=== PATIENT | female | born 1985 | race Caucasian/White ===

== ENCOUNTER 2017-12-20 11:56 | Emergency (ER) | payer BC, OTHER ==
[~2017-12-20] VITALS: Ht 160 cm; Wt 90.7 kg
[~2017-12-20 11:56] MED LIST: AMITRIPTYLINE H25 MG PO; BENTYL10 MG PO; CLOMIPHENE CITR50 MG PO; METFORMIN HCL500 MG PO; NORCO 5-325 TA1 EACH PO; WELLBUTRIN SR100 MG PO
[2017-12-20] MEDS ORDERED: GLUCOPHAGE500 MG PO (12:19)
== END 2017-12-20 15:06 | disposition home or self-care (01) ==
LOC: ED 11:56
DX: R19.7 Diarrhea, unspecified (principal); K92.2 Gastrointestinal hemorrhage, unspecified; Z91.041 Radiographic dye allergy status
CPT/HCPCS: 36415; 80053; 81001; 83690; 84703; 85025; 99283

== ENCOUNTER 2022-06-27 14:09 | Inpatient (IN) | payer BC, OTHER ==
[~2022-06-27] VITALS: Ht 160 cm; Wt 95.9 kg
[~2022-06-27 14:09] MED LIST changes: +AMBIEN5 MG PO; +CELECOXIB200 MG PO; +CIPRO500 MG PO; +GLUCOPHAGE500 MG PO; +HAIR, SKIN & N1 EACH PO; +HYDROCODON-ACE1 EA11 PO; +IBUPROFEN600 MG PO; +LIPITOR20 MG PO; +MAGNESIUM200 MG PO; +MAPAP325 MG PO; +MULTIVITAMINS1 EAC8 PO; +OMEGA 3 1,0001 EACH PO; +OXYBUTYNIN CHLOR5 MG PO; +OXYCODON-ACETA1 EAC2 PO; +VENTOLIN HFA18 GM INH; +VITAMIN D31000 UNI1 PO
--- NOTE | 2022-06-27 20:05 | NUR ---
PATIENT ADMISSION COMPLETED. PATIENT RATES PAIN AT A 4/10 AND DENIES THE NEED FOR PAIN MEDICATION AT THIS TIME. PATIENT DENIES ANY NAUSEA. PATIENTS IV INFUSING PER ORDER. MEDS GIVEN PER ORDER. PATIENT UP TO BR AND VOIDED. PATIENT IS BACK IN BED RESTING. NO FURTHER NEEDS NOTED. CALL LIGHT IN REACH. VITALS TAKEN AND RECORDED.
--- NOTE | 2022-06-27 21:10 | NUR ---
PATIENT REPORTS 6/10 PAIN IN HER MID UPPER ABD. PATIENT GIVEN PRN PAIN MEDICATION PER ORDER. NO FURTHER NEEDS NOTED. CALL LIGHT IN REACH.
--- NOTE | 2022-06-27 21:56 | NUR ---
PATIENT IS RESTING IN BED WATCHING TV. PATIENT STATED "MY PAIN IS MUCH IMPROVED". PATIENT DENIES THE NEED FOR ANY PAIUN MEDICATION AT THIS TIME. PATIENT DENIES ANY NAUSEA. NO FURTHER NEEDS NOTED. CALL LIGHT IN REACH. HAT IN TOILET EMPTIED.
--- NOTE | 2022-06-28 00:04 | NUR ---
PRN PAAIN MEDICATION GIVEN PER ORDER. FOR 6/10 ABD PAIN. NO FURTHER NEEDS NOTED. IV INFUSING PER ORDER. CALL LIGHT IN REACH.
--- NOTE | 2022-06-28 02:40 | NUR ---
PATIENTS VITALS TAKEN AND RECORDED. INTAKE AND OUTPUT RECORDED. SCHEDULED IX ABX INFUSING PER ORDER. PATIENT DENIES ANY NAUSEA. PATIENT DENIES ANY PAIN AT THIS TIME. NO NEEDS NOTED. CALL LIGHT IN REACH.
--- NOTE | 2022-06-28 04:14 | NUR ---
PATIENT IS RESTING IN BED WITH EYES CLSOED, RR 16. CALL LIGHT IN REACH.
--- NOTE | 2022-06-28 06:23 | NUR ---
VITALS TAKEN AND RECORDED. INTAKE AND OUTPUT RECORDED. AM MEDS PER ORDER. PATIENT RATES PAIN AT A 3/10. PATIENT DENIES THE NEED FOR PRM PAIN MEDICATION AT THIS TIME. WARM PACK PROVIDED. IV INFUSING PER ORDER. PATIENT DENIES ANY NAUSEA. NO FURTHER NEEDS NOTED. CALL LIGHT IN REACH.
--- NOTE | 2022-06-28 07:19 | NUR ---
PT RESTING IN BED EYE MASK IN PLACE AT TIME OF SHIFT REPORT. LEFT UNDISTURBED. NEEDED ITEMS ARE IN REACH.
--- NOTE | 2022-06-28 09:06 | NUR ---
PT AWAKE RESTING IN BED. DENIES PAIN BUT AGREES SHE WANTS TORDOL PREVENTATIVELY. CLEAR LIQUID TRAY AT BEDSIDE PT TOLERATEING FLUIDS WITHOUT C/O
[2022-06-28] MEDS ORDERED: MONTELUKAST SOD10 MG PO (10:08)
[2022-06-28] MEDS ORDERED: BUPROPION XL300 MG PO (10:09)
--- NOTE | 2022-06-28 10:33 | NUR ---
PT RESTING IN BED, DR IRVING IN TO SEE HER EARLIER TO DISCUSS PLAN GOING FORWARD AND DIAGNOSIS. ALL QUESTIONS ANSWERED. CLEAR LIQUIDS TOLERATED WELL. DENIES WANT OF OTHER ITEMS
--- NOTE | 2022-06-28 10:34 | NUR ---
PT ENCOURAGED TO AMBULATE SEVERAL TIMES THIS SHIFT PER DR IRVING ORDERS SHE VERBALIZES UNDERSTANDING
--- NOTE | 2022-06-28 11:00 | NUR ---
Spoke with Doretha, she is well known to me. She lives in town with her spouse and child. Active, drives. Works as a CHW. Denies need for DME. States she is unable to eat without pain. Also states discussed a bowel resection with her. Plans on dc to home when she is discharged with help from her spouse. Denies any needs.
--- NOTE | 2022-06-28 12:21 | NUR ---
PT REPORTS PAIN AND NAUSEA AFTER HAVING A BM. DILAUDID AND ZOFRAN ADMINISTERED. CHECKING BACK 10 MINUTES LATER PT AGREES SYMPTOMS HAVE RESOLVED. SAYS SHE IS SLEEPY NOW AND GOING TO NAP.
--- NOTE | 2022-06-28 13:57 | NUR ---
PT REPORT NOT TOLERATING CLEAR LIQUIDS NOW. STATES "EVERYTIME I HAVE SOMETHING I JUST HURT" NAUSEA HAS PASSED PT JUST RESTING NOW.
--- NOTE | 2022-06-28 14:51 | NUR ---
PT ALERT, ORIENTED AND RESTING WITH TV ON. PT IN PAIN, CLEAR LIQUIDS. PT GOT EMOTIONAL SHE TALKED ABOUT HER PHYSICAL NEEDS,GAVE COMFORT. ENCOURAGED PT TO GET INFORMATION TO MAKE BEST MEDICAL DECISIONS POSSIBLE, ACKNOWLEDGED BY PT. PT REQUESTED PRAYER, WILL FOLLOW NEEDED
[2022-06-28] MEDS ORDERED: SODIUM CHLORIDE3 ML INH (18:04)
[2022-06-28] MEDS ORDERED: SYMBICORT 16010.2 GM INH (18:16)
--- NOTE | 2022-06-28 18:17 | NUR ---
MED REC COMPLETE
--- NOTE | 2022-06-28 19:43 | NUR ---
RECEIVED REPORT FROM DAY SHIFT RN. PATIENT IS RESTING IN BED. PATIENT DENIES ANY PAIN OR NAUSEA. NO NEEDS NOTED. CALL LIGHT IN REACH.,
--- NOTE | 2022-06-28 20:58 | NUR ---
PATIENT ASSESMENT COMPLETED. PATIENTS VITALS TAKEN AND RECORDED. INTAKE AND OUTPUT RECORDED. PATIENT RATES PAIN AT A 7/10, PRN PAIN MEDICATION GIVEN PER ORDER. PATIENTS PM MEDS GIVEN PER ORDER. IV INFUSING PER ORDER. PATIENT CONTINUES TO HAVE ON AND OFF PAIN IN HER MID UPPER ABD. PATIENT PROVIDED FRESH ICE WATER. NO FURTHER NEEDS NOTED. CALL LIGHT IN REACH.
--- NOTE | 2022-06-28 21:13 | NUR ---
PT UP TO SHOWER. AWARE TO CALL IF NEEDS ASSISTANCE.
--- NOTE | 2022-06-28 23:04 | NUR ---
PATIENTS IV NO LONGERT PATENT. NEW IV STARTED BY FRANCES RN. PATIENTS IV INFUSING PER ORDER. PATIENT DENIES ANY PAIN OR NAUSEA. NO FURTHER NEEDS NOTED. CALL LIGHT IN REACH.
--- NOTE | 2022-06-28 23:40 | NUR ---
PATIENT REPORTS 6/10 PAIN IN HER ABD. PRN PAIN MEDICATION GIVEN PER ORDER. NO FURTHER NEEDS NOTED. CALL LIGHT IN REACH.
--- NOTE | 2022-06-29 02:09 | NUR ---
PATIENTS SCHEDULED IV ABX INFUSING PER ORDER. PATIENT DENIES ANY PAIN OR NAUSEA. NO FURTHER NEESD NOTED. CALL LIGHT IN REACH.
--- NOTE | 2022-06-29 03:43 | NUR ---
PATIENT IS RESTING IN BED WITH EYES CLSOED, RR 16. CALL LIGHT IN REACH. IV INFUSING PER ORDER.
--- NOTE | 2022-06-29 05:38 | NUR ---
VITALS TAKEN AND RECORDED. INTAKE AND OUTPUT RECORDED. PATIENT RATES PAIN AT A 2/10 AND DENIES THE NEED FOR PRN PAIN MEDICATION AT THIS TIME. AM MEDS GIVEN PER ORDER. PATIENT DENIES ANY NAUSEA. PATIENTS IV INFUSING PER ORDER. FRESH ICE WATER PROVIDED. NO FURTHER NEEDS NOTED. CALL LIGHT IN REACH.
--- NOTE | 2022-06-29 05:57 | NUR ---
PATIENT REPORTED 6/10 PAIN, PRN PAIN MEDICATION GIVEN PER ORDER. PATIENT DENIES ANY NAUSEA. NO FURTHER NEEDS NOTED. CALL LIGHT IN REACH.
--- NOTE | 2022-06-29 07:57 | NUR ---
PT REPORT RECIEVED FROM MAN GOODE.
--- NOTE | 2022-06-29 08:42 | NUR ---
PT RATES PAIN 10. STATES SHE HOPES TO GO HOME TODAY. FEELS LIKE THE INFLAMMATION HAS GONE DOWN. STILL UNCOMFORTABLE BUT AT A MANAGEABLE LEVEL. BOWELTONES MINIMAL BUT STATES SHE HASNT EATEN YET.
--- NOTE | 2022-06-29 11:15 | NUR ---
Spoke with Doretha, she cont. to have pain. Pain meds were increased and she is on a clear liquid diet. Hopes to be able to go home.
--- NOTE | 2022-06-29 11:45 | NUR ---
ADMINISTERED TORADOL PER PT REQUEST. RATES PAIN 8\10. PT ALSO HUNGRY BUT KNOWS IT MIGHT CAUSE MORE PAIN.
--- NOTE | 2022-06-29 13:57 | NUR ---
PT RESTING IN BED, TV ON. PT EXPRESSED FRUSTRATION, SHE IS HUNGRY AND WANTS TO EAT BUT KNOWS WHY SHE CAN'T. GAVE ENCOURAGEMENT, PT HOPES TO DC TODAY.
--- NOTE | 2022-06-29 14:32 | NUR ---
SPOKE WITH DR IRVING REGARDING ADVANCING DIET TO FULL LIQUID. PT EXTREMELY HAPPY WITH THAT.
--- NOTE | 2022-06-29 14:59 | NUR ---
PT CALLED TO REPORT NAUSEA. DOES NOT KNOW IF SHE GOT TOO HUNGRY OR IF IT WAS THE YOGURT. GIVEN 4MG ZOFRAN AND INSTRUCTED TO CALL IN 15 MINUTES IF IT DOES NOT HELP AND WILL GIVE THE OTHER 4MG.
--- NOTE | 2022-06-29 16:07 | NUR ---
PT CALLED FOR MORE NAUSEA MEDS. TRIED EATING YOGURT AND IT DIDNT SETTLE WELL. TITRATED UP TO MAX DOSE OF ZOFRAN.
--- NOTE | 2022-06-29 19:20 | NUR ---
SHIFT REPORT RECEIVED FROM DAYSCTFT MAN CLOUD AT BEDSIDE. pt AWAKE AND RESTING IN BED, ON RA. RR EVEN AND UNLABORED, NO DISTRESS NOTED. pt INDEPENDNET IN ROOM. CALL LIGHT IN REACH.
--- NOTE | 2022-06-29 20:30 | NUR ---
ASSESSMENT COMPLETE, SCHEDULED MEDS GIVEN-SEE EMAR. IV SITES X2 WNL, FLUIDS AND IV ABX INFUSING DIRECTED. pt DENIES NAUSEA, REPORTS TOLERABLE 5/10 PAIN, WILL CONTINUE TO MONITOR. BOWEL TONES ACTIVE. NO ADDITIONAL NEEDS, CALL LIGHT IN REACH.
--- NOTE | 2022-06-29 22:15 | NUR ---
scheduled tylenol given, see emar. pt continues to report pain 5/10, denies further needs or concerns. independent in room, call light in reach.
--- NOTE | 2022-06-30 00:22 | NUR ---
pt AWAKE AND RESTING IN BED, ON RA. RR EVEN AND UNLABORED. NO DISTRESS NOTED. IV SITE WNL, FLUIDS INFUSING DIRECTED. NO ADDITIONAL NEEDS OR CONCERNS VERBALIZED. WILL CONTINUE TO MONTIOR.
--- NOTE | 2022-06-30 01:23 | NUR ---
call light answered, pt reports increased pain and nausea. prn pain and nasuea medication both given, see emar. pt reports pain 05/30. assessment complete, no acte changes, pt continues to refuse scd's. call light in reach, pt independent in room.
--- NOTE | 2022-06-30 02:17 | NUR ---
SCHEDULED IV ABX INFUSING DIRECTED, IV SITE WNL. pt REPORTS PAIN IS "BETTER". REPORTS NAUSEA IS RESOLVED. NO ADDITIONAL NEEDS, CALL LGHT IN REACH. IV TO RIGHT UPPER ARM DC'D pt HAS ANOTHER WORKING IV AND REPORTS DISCOMFORT AND INABILITY TO SLEEP W/ CURRENT IV PLACEMENT. CATHETER TIP INTACT.
--- NOTE | 2022-06-30 04:30 | NUR ---
pt HAD AN UNEVENTFUL SHIFT. A/OX4, INDEPENDENT IN ROOM AND CALLS APPROPRIATELY. VSS, pt AFEBRILE. PAIN CONTROLLED WITH IV AND PO PAIN MEDICATIONS. ZOFRAN 8MG GIVEN X1, RESOLVED NAUSEA. BOWEL TONES ACTIVE. REFUSED SCD'S THIS SHIFT. VERY LITTLE INTAKE, TOOK MEDS WITH WATER. SLEPT OFF AND ON THIS SHIFT.
--- NOTE | 2022-06-30 07:45 | NUR ---
REPORT RECEIVED FROM NIGHT RN AND PT. CARE RESUMED. PT. IS ALERT AND ORIENTED. SHE C/O HEADACHE AND RT.ABDOMINAL PAIN. ADMIN TORODOL. ASSESSMENT COMPLETED AND MORNING MEDS GIVEN. BOWEL TONES ACTIVE AND PT. REPORTS SHE IS PASSING GAS. IV FLUSHES WELL. DISCUSSED POC AND MEDS. LEFT RESTING WITH CALL LIGHT IN REACH.
--- NOTE | 2022-06-30 08:02 | NUR ---
PT IS LAYING IN BED SUPINE. UPDATED WHITEBOARD, REFILLED WATER GIVEN CUP OF ICE. PT STATED SHE WOULD LIKE SOME TYLENOL DUE TO A HEADACHE. MAN RODRIGUEZ NOTIFIED. NO OTHER REQUESTS AT THIS TIME. CALL LIGHT IN REACH.
--- NOTE | 2022-06-30 10:47 | NUR ---
ROUNDING ON PT. SHE IS AMBULATING TO THE BATHROOM. DENIES NAUSEA AND HAS EATEN 50% OF FULL LIQUID BREAKFAST. DENIES FURTHER NEEDS. LEFT RESTING WITH CALL LIGHT IN REACH.
--- NOTE | 2022-06-30 12:10 | NUR ---
ROUNDING ON PT. SHE DENIES NEEDS AT THIS TIME. PT. ASKED WHETHER SHE WOULD GET A CT THIS MORNING SO SHE COULD UPDATE . UPDATED PT. ON POC. LEFT RESTING WITH CALL LIGHT IN REACH.
[2022-06-30] MEDS ORDERED: ACETAMINOPHEN500 MG PO (12:41)
[2022-06-30] MEDS ORDERED: CIPRO500 MG PO (12:41)
[2022-06-30] MEDS ORDERED: METRONIDAZOLE250 MG PO (12:45)
--- NOTE | 2022-06-30 14:15 | NUR ---
REMOVED PT IV PER RN FOR D/C @ APPX 1411. NO COMPLICATIONS, UV INTACT.
--- NOTE | 2022-06-30 14:16 | NUR ---
PT ALERT, ORIENTED AND SITTING UP IN BED. PT 'S DIET ADVANCED TO HAVE JELLO, PUDDING ETC. AND IS MUCH HAPPIER. PLAN IS TO DC TODAY AND STAY CONNECTED WITH DR IRVING FOR FURTHER TEATMENT/SURGERY. GAVE ENCOURAGEMENT, HAD PRAYER WITH PT WILL FOLLOW NEEDED
--- NOTE | 2022-06-30 14:40 | NUR ---
ALL DISCHARGE INSTRUCTIONS REVIEWED AND QUESTIONS ANSWERED. PT. LEFT WITH ALL BELONGINGS VIA WHEELCHAIR WITH AND BONER MEAT. IV REMOVED BY BONER MEAT WITH CATH INTACT.
--- NOTE | 2022-07-01 13:04 | DS ---
[facility] [address], [place] [address] Signed ADMISSION DATE: 06/27/2022 DISCHARGE DATE: 06/30/2022 REASON FOR ADMISSION: This 37-year-old white woman is admitted for acute atypical colonic diverticulitis at hepatic flexure. HISTORY: The patient has been having right upper abdominal pain, presented to the emergency room, where a CT scan was performed showing a calcific lesion in the right upper quadrant, subsequently interpreted and verified to be a calcified diverticula in the right upper quadrant at the hepatic flexure. She is admitted for further evaluation and care. PERTINENT PHYSICAL EXAMINATION: GENERAL: At the time of admission showed a pleasant white woman, did not look systemically top sick. VITAL SIGNS: Temperature is 98, pulse 109, respirations 17, and blood pressure 140/96. ABDOMEN: Obese, but generally soft. There is tenderness in epigastric and right subcostal area. LABORATORY STUDIES: Showed white count of 10.5, hematocrit 37.1, platelets are 313,000. AST 99, ALT 126, alkaline phosphatase 170, and lipase 75. Notably, the patient has undergone cholecystectomy in the past. She additionally has had appendectomy. HOSPITAL COURSE: She was admitted, given intravenous fluid resuscitation, IV antibiotic . She had steady improvement. She was advanced in her diet from clear liquids to full liquid low-fiber diet and was discharged home anticipating a low-fiber diet for the next 4 weeks. She will be discharged home with Lyndon and Jomar. She will return to see me in approximately 4 weeks, at which point consideration will be made for colonoscopy. She has had colonoscopy in the past year by unit support representative elsewhere. DISCHARGE DIAGNOSES: 1. Atypical hepatic flexure acute diverticulitis with opacified hepatic flexure diverticulum. 2. History of appendectomy and cholecystectomy. 3. History of ectopic with left fallopian tube excision. 4. Allergy to iodine and iodine containing products. Electronically Signed By: JAMES IRVING MD 07/01/22 1304 PATIENT NAME: CHAPINCITO MURRAY DISCHARGE SUMMARY DATE OF : [birth year] REPORT #: [id number] PHYSICIAN: JAMES IRVING MD PCP: GABO MORRIS MD REPORT IS CONFIDENTIAL AND NOT TO BE RELEASED WITHOUT AUTHORIZATION [facility] [address], [place] [address] Signed DISCHARGE MEDICATIONS: Will include: 1. Tylenol 1000 mg p.o. q.6 hours p.r.n. pain #30. 2. Cipro 500 mg p.o. b.i.d. #10. 3. Flagyl 250 mg p.o. t.i.d. #15. She will resume her usual medications includin. Joy-3 fatty acid fish oil tablet once daily. 2. Vitamin D3 1000 units p.o. daily. 3. Multivitamin one daily. 4. Magnesium tablet 200 mg p.o. daily. 5. Albuterol sulfate two puffs q.6 hours as needed for shortness of breath. 6. Montelukast sodium tablet one p.o. daily. 7. Bupropion extended release 300 mg one p.o. daily. 8. Symbicort inhaler two puffs b.i.d. as needed. FOLLOWUP PLAN: She will return to see me in approximately a month. We will anticipate colonoscopy thereafter. MD DEAN Bolanos/BALTAZAR /[id number] cc: Dr. Bibiana Boss Copies: ~ Electronically Signed By: JAMES IRVING MD 07/01/22 1304 PATIENT NAME: CHAPINCITO MURRAY DISCHARGE SUMMARY DATE OF : [birth year] REPORT #: [id number] PHYSICIAN: JAMES IRVING MD PCP: GABO MORRIS MD REPORT IS CONFIDENTIAL AND NOT TO BE RELEASED WITHOUT AUTHORIZATION
--- NOTE | 2022-07-02 14:04 | HP ---
[facility] [address] [facility] [place], [place] [address] Signed ADMISSION DATE: 06/27/2022 TIME: 6:40 p.m. PROBLEM: Atypical splenic flexure diverticulitis. HISTORY OF PRESENT ILLNESS: This 37-year-old white woman is known to me from the past having undergone appendectomy and she has additionally undergone cholecystectomy. Both of these were by laparoscopic approach. A few days ago, she began having right upper abdominal pain, which was progressive and unrelenting. Today, she attempted to eat some Tongan food, which was completely not tolerated and presented to the emergency room, where she was evaluated by Dr. Delgado. She was noted to have right upper abdominal pain. A CT scan was performed, which demonstrated a calcific lesion in the right upper quadrant. This was subsequently interpreted and verified on my review to be most likely a calcified diverticulum in the right upper quadrant at the hepatic flexure consistent with diverticulitis. Review of this problem is best noted on coronal section on image 40.20. Shows no evidence of free air or gross perforation. She is admitted for further evaluation and care. The patient has had no fever or chills, but definitely has had significant pain and increasing pain over the past 48 hours. She has had no nausea or vomiting. Evaluation shows a white count of 10.5 and hematocrit of 37.1, and platelets 313,000. Chem profile was essentially normal. Glucose is 109. AST is 99, ALT 126, and alkaline phosphatase 170. Her lipase is 75. Beta HCG is negative. COVID serology is negative as well. SOCIAL HISTORY: She is accompanied by her . 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 PHYSICAL EXAMINATION: GENERAL: Pleasant white woman, who does not look systemically toxic at this time. VITAL SIGNS: Temperature is 98, pulse is 109, respirations 17, blood pressure 140/96, and O2 saturation on room air is 98%. NECK: Trachea is midline. She has no hoarseness. CHEST: Shows normal respiratory excursion. Pulses regular. ABDOMEN: Obese, but generally soft, though there is some tenderness in the epigastric and right subcostal area. EXTREMITIES: Show no clubbing, cyanosis, or edema. Electronically Signed By: JAMES IRVING MD 07/02/22 1404 PATIENT NAME: CHAPINCITO MURRAY HISTORY AND PHYSICAL DATE OF : [birth year] REPORT #: [id number] PHYSICIAN: JAMES IRVING MD PCP: GABO MORRIS MD REPORT IS CONFIDENTIAL AND NOT TO BE RELEASED WITHOUT AUTHORIZATION [facility] [address], [place] [address] Signed LABORATORY STUDIES: As noted. CT scan was reviewed in detail and the interpreting report also reviewed, which shows a proximal transverse colon acute diverticulitis with high-density material within an inflamed diverticulum without associated free air or fluid collection. ASSESSMENT: She essentially has an atypical diverticulitis. I discussed this with the use of illustrations and so forth. I would recommend admission to the hospital, IV antibiotics, bowel rest except for clear liquids and ultimately consideration for colonoscopy, but not urgently at all. Given the atypical nature of this problem, segmental resection may be appropriate. I am uncertain of any previous imaging studies she may have had that may or may not show such a finding. An MRI that was performed on her abdomen on March 23, 2022, to my examination does not show such a finding or even diverticular changes particularly. Her MRI images did not particularly demonstrate diverticulosis either. Review of her written report from March 23, 2022 confirms prior cholecystectomy with a normal exam otherwise. It is noted that her MRI was performed for a "followup pancreatic cyst." MD DEAN Bolanos/JOHNNYL /[id number] cc: Dr. Danny Morris Copies: ~ Electronically Signed By: JAMES IRVING MD 07/02/22 1404 PATIENT NAME: CHAPINCITO MURRAY HISTORY AND PHYSICAL DATE OF : [birth year] REPORT #: [id number] PHYSICIAN: JAMES IRVING MD PCP: GABO MORRIS MD REPORT IS CONFIDENTIAL AND NOT TO BE RELEASED WITHOUT AUTHORIZATION
== END 2022-06-30 14:45 | disposition home or self-care (01) | DRG 392 ==
LOC: ED 14:09 → MS 18:48
PROVIDERS: ADMIT Surgery; ATTEND Surgery
DX: K57.32 Diverticulitis of large intestine without perforation or abscess without bleeding (principal); K86.2 Cyst of pancreas; Z90.49 Acquired absence of other specified parts of digestive tract; K57.30 Diverticulosis of large intestine without perforation or abscess without bleeding; Z91.041 Radiographic dye allergy status; Z87.59 Personal history of other complications of pregnancy, childbirth and the puerperium; Z98.890 Other specified postprocedural states; Z79.899 Other long term (current) drug therapy; Z79.51 Long term (current) use of inhaled steroids; Z20.822 Contact with and (suspected) exposure to COVID-19
CPT/HCPCS: 36415; 74176; 80053; 83690; 84703; 85025; 87502; A9270; C9803; J0694; J1170; J1885; J2270; J2405; J7030; J7121; U0003

== ENCOUNTER 2022-08-10 11:07 | Day surgery (SDC) | payer BC, OTHER ==
[~2022-08-10] VITALS: Ht 160 cm; Wt 93.0 kg
[~2022-08-10 11:07] MED LIST changes: +ACETAMINOPHEN500 MG PO; +BUPROPION XL300 MG PO; +MEDROL4 M1 PO; +METRONIDAZOLE250 MG PO; +MONTELUKAST SOD10 MG PO; +OXYBUTYNIN CHLOR5 M1 PO; +SODIUM CHLORIDE3 ML INH; +SUTAB 1.479-1.479 GM PO; +SYMBICORT 16010.2 GM INH
--- NOTE | 2022-08-10 12:56 | NUR ---
08/10/22 1256 Asiya Singh 1244 PT ARRIVED IN PACU SLEEPY WITH NO C/O'S. ABD SOFT. 1255 RESTING. REU.
--- NOTE | 2022-08-11 09:48 | OR ---
[facility] [address], [place] [address] Signed DATE OF OPERATION: 08/10/2022 SURGEON: James Irving MD PREOPERATIVE DIAGNOSES: History of hospitalization for right upper quadrant pain, presumed "diverticulitis hepatic flexure." POSTOPERATIVE DIAGNOSES: 1. No evidence of diverticular changes of colon including sigmoid or hepatic flexure. 2. Flat subtle polyp of cecum (excised) with mucosal lift technique. PROCEDURE: Total colonoscopy to cecum with mucosal lift, excision of cecal polyp including tattoo. ANESTHESIA: Intravenous sedation, fentanyl 150 mcg and Versed 6 mg. INDICATION: This 37-year-old white woman is a patient of Alexsander Angel. She was hospitalized for a rather significant and severe right upper abdominal pain characterized as acute hepatic flexure diverticulitis. IV antibiotics and bowel rest allowed for resolution of her symptoms. She has undergone cholecystectomy in [place] in the past. She does have past medical history of ectopic requiring left salpingectomy. She was noted on MRI in March 2022. Having no findings concordant to the CT scan performed during her hospitalization. Notably, there was a calcified nodule that was suggestive of a diverticulum in the area. Such a finding was not noted on the MRI, it is noted. Her symptoms of right upper abdominal pain have resolved entirely. She is now to undergo colonoscopy to assess more fully the splint at the hepatic flexure of the colon and elsewhere. She understands the risks of colonoscopy including but not limited to bleeding, infection, and perforation and wished to proceed. FINDINGS: The prep was excellent. Complete colonoscopy was undertaken to the cecum without question. I did not see diverticula in any segment of the colon at least not obvious diverticula and certainly none in the hepatic flexure. She did have a very subtle flat polyp of the cecum, which was excised with mucosal lift technique with Ramona tattoo marking. There were no other findings of concern. There was no evidence of inflammation in the hepatic flexure or elsewhere otherwise. Electronically Signed By: JAMES IRVING MD 08/11/22 0948 PATIENT NAME: CHAPINCITO MURRAY OPERATIVE REPORT DATE OF : [birth year] REPORT #: [id number] PHYSICIAN: JAMES IRVING MD PCP: GABO MORRIS MD REPORT IS CONFIDENTIAL AND NOT TO BE RELEASED WITHOUT AUTHORIZATION [facility] [address], [place] [address] Signed PROCEDURE IN DETAIL: The patient was brought to the endoscopy suite and placed in lateral decubitus position given intravenous sedation to the point of slurred speech and nystagmus with full cardiopulmonary monitoring. Digital rectal examination was normal. An Olympus video colonoscope was passed in the rectum and manipulated throughout the colon. I see no evidence of obvious diverticula of the sigmoid and left colon. The scope was ultimately advanced to the cecum. The ileocecal valve and appendiceal orifice were identified as normal. A very subtle but real flat polyp was noted of the cecum. Narrow band imaging was used to more fully confirm this. Mucosal lift excision was deemed advisable. With a sclerotherapy needle, the central portion of the flat polyp was injected with submucosal spot endoscopic tattooing. This elevated lesion made it far more obvious as a polyp in fact. Using hot snare technique, the polyp was excised. The specimen was withdrawn and passed for pathology. Good pigmentation was noted at the base of the excised polyp. Mucosal edges were reapproximated with a single vascular clip to provide additional support to mucosal healing. The scope was then withdrawn and the ileocecal valve identified as normal. Further withdrawal of scope with particular attention to the hepatic flexure showed no sign of diverticula, polyps, cancer, or other issue. The scope was ultimately withdrawn and removed. The patient was taken to the recovery room in good condition. CONCLUSION DIAGNOSIS: Flat polyp of cecum. No evidence of mucosal abnormality of hepatic flexure of colon including no diverticula. PLAN: As she has no symptoms of right upper quadrant pain at this time expectant management may be both most appropriate. A calcific nodule that was noted adjacent to the colon at that time and with known history of cholecystectomy elsewhere did make me wonder if perhaps the calcific abnormality was retained gallstone from cholecystectomy. Review of her record confirms that she has had colonoscopy first at age 16 for what were presumed to be polyps. She has had multiple colonoscopies in her youth. She had a colonoscopy at [facility] a year ago, which she described as showing "polyps." We will see her back in the office in four to six weeks and review her pathology report. If she has any problems in the meantime, she will let me know. Electronically Signed By: JAMES IRVING MD 08/11/22 0948 PATIENT NAME: CHAPINCITO MURRAY OPERATIVE REPORT DATE OF : [birth year] REPORT #: [id number] PHYSICIAN: JAMES IRVING MD PCP: GABO MORRIS MD REPORT IS CONFIDENTIAL AND NOT TO BE RELEASED WITHOUT AUTHORIZATION [address] [address] Signed James Irving MD JM/MODL /[id number] cc: Alexsander Angel PA-C Copies: ALEXSANDER ANGEL PAC ~ Electronically Signed By: JAMES IRVING MD 08/11/22 0948 PATIENT NAME: CHAPINCITO MURRAY OPERATIVE REPORT DATE OF : [birth year] REPORT #: [id number] PHYSICIAN: JAMES IRVING MD PCP: GABO MORRIS MD REPORT IS CONFIDENTIAL AND NOT TO BE RELEASED WITHOUT AUTHORIZATION
--- NOTE | 2022-08-13 12:10 | PATH ---
[facility] [address] [place], [place] [address] Signed SPECIMEN(S): A FLAT CECAL POLYP SPECIMEN SOURCE: A. FLAT CECAL POLYP CLINICAL HISTORY: Diarrhea; RUQ pain. History of flat polyp of cecum FINAL PATHOLOGIC DIAGNOSIS: Flat cecal polyp: - Serrated polyp / adenoma (one fragment). JVR:duane:C2NR MICROSCOPIC EXAMINATION: Histologic sections of all submitted blocks are examined by light microscopy. These findings, together with the gross examination, support the pathologic diagnosis. GROSS DESCRIPTION: The specimen, labeled "AW, 1," and designated on the requisition "cecum polypectomy," is received in formalin and consists of one, denney to black, unoriented, 0.7 x 0.5 x 0.4 cm polyp. The resection margin is inked blue and the specimen is bisected. The specimen is entirely submitted in cassette (A1). AI (under the direct supervision of a pathologist) The Gross Description was prepared using a voice recognition system. The report was reviewed for accuracy; however, sound-alike word errors, addition and/or deletions may occur. If there is any question about this report, please contact Client Services. PERFORMING LABORATORY: The technical component was performed by [facility], [address] [place] [id number] (CLIA# [id number]). Professional interpretation was performed by [facility], [address] [place] [id number] (CLIA#: [id number]). Diagnostician: Joe Shin MD Pathologist Electronically Signed 08/13/2022 PATIENT NAME: CHAPINCITO MURRAY PATHOLOGY DATE OF : 87 REPORT #: [id number] PHYSICIAN: LE PATHOLOGY PCP: GABO MORRIS MD REPORT IS CONFIDENTIAL AND NOT TO BE RELEASED WITHOUT AUTHORIZATION [address] [place], [place] [address] Signed Copies: ~ PATIENT NAME: CHAPINCITO MURRAY PATHOLOGY DATE OF : 87 REPORT #: [id number] PHYSICIAN: LE PATHOLOGY PCP: GABO MORRIS MD REPORT IS CONFIDENTIAL AND NOT TO BE RELEASED WITHOUT AUTHORIZATION
== END 2022-08-10 13:25 | disposition home or self-care (01) ==
LOC: DS 11:07
PROVIDERS: ATTEND Surgery
PROC: 3E0H8GC Introduction of Other Therapeutic Substance into Lower GI, Via Natural or Artificial Opening Endoscopic (ICD-10-PCS; 2022-08-10)
PROC: 0DBH8ZX Excision of Cecum, Via Natural or Artificial Opening Endoscopic, Diagnostic (ICD-10-PCS; principal; 2022-08-10 12:10)
DX: Z12.11 Encounter for screening for malignant neoplasm of colon (principal); Z86.010 Personal history of colon polyps; J45.909 Unspecified asthma, uncomplicated; Z90.49 Acquired absence of other specified parts of digestive tract; Z91.041 Radiographic dye allergy status; D12.0 Benign neoplasm of cecum
CPT/HCPCS: 84703; 99153; G0500; J2250; J2550; J3010; J7121

== ENCOUNTER 2022-10-12 10:34 | Day surgery (SDC) | payer BC, OTHER ==
[~2022-10-12] VITALS: Ht 160 cm; Wt 93.1 kg
--- NOTE | 2022-10-12 12:19 | NUR ---
10/12/22 1219 Shana Wayne 1213 PATIENT ARRIVES TO PACU SLEEPING, AWAKENS WITH VERBAL STIMULI. BACK TO SLEEP WHEN NOT STIMULATED. RESP EVEN AND UNLABORED, NC ON AT 3 LITERS, TURNED OFF AFTER ARRIVAL TO PACU.
--- NOTE | 2022-10-12 15:33 | OR ---
[facility] [address] [place], [place] [address] Signed DATE OF OPERATION: 10/12/2022 SURGEON: James Irving MD PREOPERATIVE DIAGNOSES: Enigmatic persistent right upper abdominal pain; history of cholecystectomy and normal colonoscopy. POSTOPERATIVE DIAGNOSES: Mild gastritis, no evidence of esophagitis or duodenal ulcer or neoplasm. PROCEDURE: Esophagogastroduodenoscopy with biopsy. ANESTHESIA: Intravenous sedation; fentanyl 100 mcg, Versed 6 mg and preoperative treatment with Phenergan 12.5 mg IV. INDICATION: This 37-year-old white woman is a patient of CHAIM Benavides. She has had persistent right upper abdominal pain. A CT scan showed calcific change in the region of hepatic flexure, which was suggestive of possible diverticulum with contrast. She has already undergone cholecystectomy in the past. She underwent colonoscopy to better characterize the problem showing no evidence of diverticulosis or diverticulitis, segmental colitis or other abnormality. She has persistent symptoms and on that basis upper endoscopy was recommended to assess for peptic disease. The risks of bleeding, infection, perforation related to upper endoscopy was reviewed with her, she understands wished to proceed. FINDINGS: Esophagus and duodenum were normal. There was no gastric outlet obstruction of the stomach. There was no sign of ulcer or neoplasm. There was mild inflammation in the stomach, but not severe by any means. CLOtest was negative 15 minutes post procedure. DESCRIPTION OF PROCEDURE: The patient was brought to the endoscopy suite and placed in the lateral decubitus position, given intravenous sedation to the point of slurred speech and nystagmus. A bite block was placed. An Olympus video upper endoscope was passed in the hypopharynx. The vocal cords were normal. Scope was advanced to the esophagus without problem, throughout its length it appeared reasonably normal. There was no Jay's epithelium, stricture or neoplasm. The scope was passed to the stomach, which was insufflated with Electronically Signed By: JAMES IRVING MD 10/12/22 1533 PATIENT NAME: CHAPINCITO MURRAY OPERATIVE REPORT DATE OF : 87 REPORT #: [id number] PHYSICIAN: JAMES IRVING MD PCP: CONI ANGEL PAC REPORT IS CONFIDENTIAL AND NOT TO BE RELEASED WITHOUT AUTHORIZATION [facility] [address] [place], [place] [address] Signed air. Rugal folds were normal. Pylorus was normal. Scope was passed through into the duodenum, which was normal. Biopsies were taken of the duodenum to assess for celiac disease. There is certainly no sign of duodenal ulceration. The scope was withdrawn. A biopsy was then taken of the antrum for both GAURANG and pathologic testing. Retroflexed view showed a somewhat marginal flap valve but no strict findings of hiatal hernia. The scope was withdrawn to the distal esophagus where biopsies were obtained, although the mucosa was normal midesophagus similarly undertaken. The scope was removed and the patient taken to the recovery room in good condition. CONCLUDING DIAGNOSIS: Mild gastritis and poor flap valve. PLAN: We will treat with PPI medication and Carafate empirically and assess her clinical response. MD DEAN Bolanos/MODL /[id number] cc: Coni Angle PA-C Copies: CONI ANGEL ~ Electronically Signed By: JAMES IRVING MD 10/12/22 1533 PATIENT NAME: CHAPINCITO MURRAY OPERATIVE REPORT DATE OF : 87 REPORT #: [id number] PHYSICIAN: JAMES IRVING MD PCP: CONI ANGEL REPORT IS CONFIDENTIAL AND NOT TO BE RELEASED WITHOUT AUTHORIZATION
--- NOTE | 2022-10-18 16:56 | PATH ---
[facility] [address] [facility] [place], [place] [address] Signed SPECIMEN(S): A DUODENAL BIOPSY SPECIMEN(S): B ANTRUM/PYLORUS BIOPSY SPECIMEN(S): C DISTAL ESOPHAGUS BIOPSY SPECIMEN(S): D MID ESOPHAGUS BIOPSY SPECIMEN SOURCE: A. DUODENAL BIOPSY B. ANTRUM/PYLORUS BIOPSY C. DISTAL ESOPHAGUS BIOPSY D. MID ESOPHAGUS BIOPSY CLINICAL HISTORY: Upper abdominal pain. Post: Mild gastritis. FINAL PATHOLOGIC DIAGNOSIS: A. Duodenal biopsy: - Benign duodenal mucosa, negative for specific diagnostic abnormality. B. Antrum/pylorus biopsy: - Benign gastric-type mucosa, negative for significantly increased inflammation. - Negative for evidence of Helicobacter organisms on routine HE-stained sections. C. Distal esophagus biopsy: - Benign esophageal mucosa, negative for increased epithelial eosinophils. - Focal aggregate of yeast-like organisms on PAS-diastase stained section. - Negative for significant epithelial involvement by the fungal organisms. - Negative for glandular mucosa. D. Mid esophagus biopsy: - Benign esophageal mucosa, negative for increased epithelial eosinophils. JVR:maia:C2NR MICROSCOPIC EXAMINATION: Histologic sections of all submitted blocks are examined by light microscopy. These findings, together with the gross examination, support the pathologic diagnosis. A PAS with diastase stain is performed with appropriate controls on block C1 highlighting the yeast-like organisms. JVR:soledadc GROSS DESCRIPTION: Four specimens are received in four containers, labeled "AW." PATIENT NAME: CHAPINCITO MRURAY PATHOLOGY DATE OF : 87 REPORT #: [id number] PHYSICIAN: LE DILL PCP: ALEXSANDER HIGH PAC REPORT IS CONFIDENTIAL AND NOT TO BE RELEASED WITHOUT AUTHORIZATION [facility] [address] [place], [place] [address] Signed A. The specimen, labeled "AW, 1," and designated on the requisition "duodenum biopsy," is received in formalin and consists of multiple denney soft tissue fragments that measure less than 0.1 to 0.5 cm in greatest dimension. The specimen is entirely submitted in cassette (A1). B. The specimen, labeled "AW, 2," and designated on the requisition "antrum/pylorus biopsy," is received in formalin and consists of three denney-white to denney soft tissue fragments that measure 0.2 to 0.4 cm in greatest dimension. The specimen is entirely submitted in cassette (B1). C. The specimen, labeled "AW, 3," and designated on the requisition "distal esophagus biopsy," is received in formalin and consists of three denney-white to denney soft tissue fragments that measure 0.1 to 0.3 cm in greatest dimension. The specimen is entirely submitted in cassette (C1). D. The specimen, labeled "AW, 4," and designated on the requisition "mid esophagus biopsy," is received in formalin and consists of two elongated, denney-white soft tissue fragments that measure 0.2 and 0.9 cm in greatest dimension. The specimen is entirely submitted in cassette (D1). AI (under the direct supervision of a pathologist) The Gross Description was prepared using a voice recognition system. The report was reviewed for accuracy; however, sound-alike word errors, addition and/or deletions may occur. If there is any question about this report, please contact Client Services. PERFORMING LABORATORY: The technical component was performed by [facility], [address] [place] [address] [place] [address] (CLIA# [id number]). Professional interpretation was performed by [facility] - [facility], [address] [place] [address], [place] [address] (CLIA#: [id number]). Diagnostician: Joe Shin MD Pathologist Electronically Signed 10/18/2022 Copies: ~ PATIENT NAME: CHAPINCITO MURRAY PATHOLOGY DATE OF : 87 REPORT #: [id number] PHYSICIAN: LE PATHOLOGY PCP: ALEXSANDER HIGH PAC REPORT IS CONFIDENTIAL AND NOT TO BE RELEASED WITHOUT AUTHORIZATION
== END 2022-10-12 12:50 | disposition home or self-care (01) ==
LOC: OPS 10:34 → DS 10:34 → OPS 12:00 → DS 12:00 → OPS 12:50
PROVIDERS: ATTEND Surgery
PROC: 0DB68ZX Excision of Stomach, Via Natural or Artificial Opening Endoscopic, Diagnostic (ICD-10-PCS; 2022-10-12)
PROC: 0DB98ZX Excision of Duodenum, Via Natural or Artificial Opening Endoscopic, Diagnostic (ICD-10-PCS; principal; 2022-10-12 12:00)
DX: K29.70 Gastritis, unspecified, without bleeding (principal); N83.209 Unspecified ovarian cyst, unspecified side; I10 Essential (primary) hypertension; Z90.49 Acquired absence of other specified parts of digestive tract; Z87.59 Personal history of other complications of pregnancy, childbirth and the puerperium; K63.5 Polyp of colon; K57.30 Diverticulosis of large intestine without perforation or abscess without bleeding
CPT/HCPCS: 84703; 99153; G0500; J2250; J2550; J3010; J7121

== ENCOUNTER 2023-11-04 06:27 | Day surgery (SDC) | payer BC, OTHER ==
[~2023-11-04] VITALS: Ht 160 cm; Wt 92.7 kg
[~2023-11-04 06:27] MED LIST changes: +DROSPIRENONE-E1 EACH PO; +OMEPRAZOLE20 MG PO
[2023-11-04 06:37] VITALS: BP 165/105
--- NOTE | 2023-11-04 07:25 | NUR ---
DS ROUNDS. 15 MINUTES. PROVIDED SUPPORTIVE PRESENCE. PROVIDED PRAYER.
--- NOTE | 2023-11-04 08:24 | NUR ---
11/04/23 0824 Nelli Carbajal PATIENT IS AWAKE AND TALKING UPON ARRIVAL TO PACU. SHE DENIES PAIN.
[2023-11-04 08:31] VITALS: BP 131/82
[2023-11-04 09:37] LABS: BASOPHILS 0.4 % (0-2); EOSINOPHILS 2.7 % (0-6); HEMATOCRIT 40.7 % (35.0-50.0); HEMOGLOBIN 13.5 g/dL (12.0-18.0); LYMPHOCYTES 29.3 % (24-44); MCH 27.8 (27-36); MCV 84.2 fl (81-99); MONOCYTES 6.5 % (0-12); NEUTROPHILS 61.1 % (39-80); PLATELET COUNT 376 K/uL (140-440); RBC 4.84 M/ul (4.3-5.7); RDW 13.2 (10.5-15.0)
--- NOTE | 2023-11-04 16:28 | OR ---
[facility] [address] [place], [place] [address] Signed DATE OF OPERATION: 11/04/2023 SURGEON: James Irving MD PREOPERATIVE DIAGNOSIS: History of serrated adenoma (flat cecal polyp) 2021, status post mucosal lift excision. POSTOPERATIVE DIAGNOSES: 1. No evidence of persistent or recurrent cecal polyp. 2. Questionable small polyp of sigmoid (excised). 3. Diverticulosis. PROCEDURE: Total colonoscopy to cecum with cold morcellation polypectomy x1. ANESTHESIA: Intravenous sedation, fentanyl 200 mcg and Versed 9 mg. INDICATIONS: This 38-year-old white woman is a patient of Dr. Morris. In 2021, she underwent colonoscopy August 10 confirming a serrated adenoma and was considered a flat cecal polyp. Mucosal lift excision was undertaken at that time. On the basis of that histology and despite having no symptoms of bleeding, diarrhea, or constipation, she is recommended to have short-term repeat colonoscopy at this time. The risk of bleeding, infection, and perforation related to colonoscopy was discussed. She understands and wished to proceed. FINDINGS: The prep was quite excellent. Complete colonoscopy was undertaken to the cecum. The previous endoscopic tattoo findings were evident. There was no evidence of residual or new polyp there. Diverticulosis was noted of the sigmoid and left colon and scattered diverticula elsewhere. There was a questionable mucosal lesion suggestive though not diagnostic of a polyp at the sigmoid which was excised as well. DESCRIPTION OF PROCEDURE: The patient was brought to the endoscopy suite and placed in the lateral decubitus position, given intravenous sedation to the point of slurred speech and nystagmus. Digital rectal examination was normal. An Olympus video colonoscope was passed in the rectum and manipulated into the sigmoid Electronically Signed By: JAMES IRVING MD 11/04/23 1628 PATIENT NAME: CHAPINCITO MURRAY OPERATIVE REPORT DATE OF : [birth year] REPORT #: [id number] PHYSICIAN: JAMES IRVING MD PCP: GABO MORRIS MD REPORT IS CONFIDENTIAL AND NOT TO BE RELEASED WITHOUT AUTHORIZATION [facility] [address] [place], [place] [address] Signed where diverticular changes were noted. The scope was ultimately advanced to the cecum. Full intubation of the cecum was noted. The ileocecal valve and appendiceal orifice were easily identified. The tattoo from previous excision was noted as well. Close inspection showed no sign of residual or new polyp. The scope was withdrawn from that point and examination throughout showed no sign of abnormality other than diverticulosis until the sigmoid where a small mucosal lesion was identified suggestive though not diagnostic of a polyp. This was excised to be certain. Further withdrawal allowed for retroflexed view of the rectum, which was normal. Scope was removed and the patient was taken to the recovery room in good condition. CONCLUDING DIAGNOSIS: No evidence of recurrent or persistent serrated adenoma; diverticulosis, questionable sigmoid polyp. PLAN: Recommend repeat colonoscopy in 3 to 5 years, sooner if symptoms should occur. She will return to the ongoing care of Dr. Morris. MD DEAN Bolanos/BALTAZAR /[id number] cc: Dr. Morris Copies: ~ Electronically Signed By: JAMES IRVING MD 11/04/23 1628 PATIENT NAME: CHAPINCITO MURRAY OPERATIVE REPORT DATE OF : 87 REPORT #: [id number] PHYSICIAN: JAMES IRVING MD PCP: GABO MORRIS MD REPORT IS CONFIDENTIAL AND NOT TO BE RELEASED WITHOUT AUTHORIZATION
--- NOTE | 2023-11-09 07:21 | PATH ---
[facility] [address] [facility] [place], [place] [address] Signed SPECIMEN(S): A SIGMOID POLYP SPECIMEN SOURCE: A. SIGMOID POLYP CLINICAL HISTORY: History of polyps FINAL PATHOLOGIC DIAGNOSIS: Sigmoid colon polyp: - Polypoid fragment of benign colonic mucosa. - No colitis or neoplasm identified. [facility] MICROSCOPIC EXAMINATION: Histologic sections of all submitted blocks are examined by light microscopy. These findings, together with the gross examination, support the pathologic diagnosis. GROSS DESCRIPTION: The specimen, labeled and designated "Ruy, sigmoid polyp," is received in formalin and consists of six denney soft tissue fragments, ranging from 0.2-0.3 cm. Entirely submitted in (A1). VB (under the direct supervision of a pathologist) The Gross Description was prepared using a voice recognition system. The report was reviewed for accuracy; however, sound-alike word errors, addition and/or deletions may occur. If there is any question about this report, please contact Client Services. ADDITIONAL NOTES: Immunohistochemical and/or in situ hybridization studies if performed in this case included appropriate positive controls that reacted as expected. This test was developed and its performance characteristics determined by [employer]. It has not been cleared or approved by the U.S. Food and Drug Administration. The FDA has determined that such clearance or approval is not necessary. This test is used for clinical purposes. It should not be regarded as investigational or for research. [employer] [facility] is certified under the Clinical Laboratory Improvement Amendments of 1988 (CLIA) as qualified to perform high complexity clinical laboratory testing. PATIENT NAME: CHAPINCITO MURRAY PATHOLOGY DATE OF : [birth year] REPORT #: [id number] PHYSICIAN: LE DILL PCP: GABO MORRIS MD REPORT IS CONFIDENTIAL AND NOT TO BE RELEASED WITHOUT AUTHORIZATION [address] [address] Signed PERFORMING LABORATORY: Technical component was performed by [facility] [employer] [facility], [address] [place] [address] (CLIA# [id number]). Professional interpretation was performed by [facility], [address] [place] [phone] (CLIA#: [id number]). Diagnostician: Nhan Castro MD Pathologist Electronically Signed 11/08/2023 Copies: ~ PATIENT NAME: CHAPINCITO MURRAY PATHOLOGY DATE OF : [birth year] REPORT #: [id number] PHYSICIAN: LE DILL PCP: GABO MORRIS MD REPORT IS CONFIDENTIAL AND NOT TO BE RELEASED WITHOUT AUTHORIZATION
== END 2023-11-04 08:45 | disposition home or self-care (01) ==
LOC: DS 06:27 → OPS 06:27 → DS 07:30 → OPS 07:30
PROVIDERS: ATTEND Surgery
PROC: 0DBN8ZX Excision of Sigmoid Colon, Via Natural or Artificial Opening Endoscopic, Diagnostic (ICD-10-PCS; principal; 2023-11-04 07:30)
DX: Z09 Encounter for follow-up examination after completed treatment for conditions other than malignant neoplasm (principal); Z86.010 Personal history of colon polyps; K63.5 Polyp of colon; K57.30 Diverticulosis of large intestine without perforation or abscess without bleeding; I10 Essential (primary) hypertension; E66.01 Morbid (severe) obesity due to excess calories; Z68.36 Body mass index [BMI] 36.0-36.9, adult; Z79.899 Other long term (current) drug therapy
CPT/HCPCS: 36415; 84703; 85025; 99153; G0500; J2250; J3010; J7121

== ENCOUNTER 2024-11-02 22:04 | Emergency (ER) | payer OTHER ==
[~2024-11-02] VITALS: Ht 160 cm; Wt 90.0 kg
[2024-11-02] MEDS ORDERED: TRANEXAMIC ACID IN NACL,ISO-OS 1,000 MG/100 ML PIGGYBACK IV ONE (22:30)
[2024-11-02] MEDS ORDERED: SODIUM CHLORIDE 0.9% 500 ML IV PRN (22:45)
[2024-11-02] MEDS ORDERED: MEGESTROL ACETATE 40 MG TAB PO ONE (22:45)
[2024-11-02] MEDS ORDERED: ESTROGENS ESTERIFIED PO ONE (22:45)
[2024-11-02] MEDS ORDERED: ondansetron HCL 4 MG/2 ML VIAL IV ONE (22:45)
[2024-11-02 22:50] LABS: BASOPHILS 0.9 % (0-2); EOSINOPHILS 2.9 % (0-6); HEMATOCRIT 37.5 % (35.0-50.0); HEMOGLOBIN 13.2 g/dL (12.0-18.0); LYMPHOCYTES 35.8 % (24-44); MCH 28.9 (27-36); MCHC 35.2 g/dl (30-36); MONOCYTES 6.5 % (0-12); NEUTROPHILS 53.9 % (39-80); PLATELET COUNT 347 K/uL (140-440); RBC 4.57 M/ul (4.3-5.7); RDW 12.8 (10.5-15.0)
[2024-11-02] MEDS ORDERED: estradioL 1 MG TAB PO ONE (23:00)
[2024-11-02 23:06] LABS: ALBUMIN 3.8 g/dL (3.4-5.0); ALBUMIN/GLOBULIN RATIO 0.93 (1.1-2.4); ANION GAP 13.8 (7-21); BILIRUBIN, TOTAL 0.2 ng/dL (0.2-1.0); BUN/CREATININE RATIO 11.49 (6.0-28.6); CALCIUM 9.1 mg/dL (8.5-10.1); CREATININE, SERUM 0.87 mg/dL (0.55-1.02); MAGNESIUM 2.1 mg/dL (1.8-2.4); POTASSIUM 3.8 mmol/L (3.5-5.1); PROTEIN, TOTAL 7.9 g/dL (6.4-8.2)
[2024-11-02] MEDS ORDERED: TRANEXAMIC ACI650 MG PO (23:35)
[2024-11-02 23:43] LABS: ABO A; ANTIBODY SCREEN NEGATIVE; RH NEGATIVE
[2024-11-03 00:20] VITALS: BP 156/94
== END 2024-11-03 00:20 | disposition home or self-care (01) ==
LOC: ED 22:04
PROVIDERS: Family Medicine
DX: N92.0 Excessive and frequent menstruation with regular cycle (principal); D21.9 Benign neoplasm of connective and other soft tissue, unspecified; Z90.49 Acquired absence of other specified parts of digestive tract; Z91.041 Radiographic dye allergy status; Z79.51 Long term (current) use of inhaled steroids; Z79.899 Other long term (current) drug therapy
CPT/HCPCS: 36415; 80053; 83735; 84703; 85025; 86850; 86900; 86901; 96365; 96375; 99284-25; J2405; J7040